=== PATIENT | female | born 1960 | race Caucasian/White ===

== ENCOUNTER 2016-10-31 05:15 | Day surgery (SDC) | payer OTHER ==
[2016-10-24 15:10] VITALS: BMI 26.6
[2016-10-31 07:00] VITALS: TEMP 98.4
[2016-10-31] MEDS ORDERED: LIDOCAINE HCL 1%, 10 MG/ML (20ML VIAL) ONE ×2 (07:18→07:19)
[2016-10-31] MEDS ORDERED: methylPREDNISolone ACET (DEPO) 40 MG/1 ML VIAL ONE (07:18)
[2016-10-31] MEDS ORDERED: BUPIVACAINE HCL/PF 0.25% (2.5MG/ML) 10 ML VIAL ONE (07:19)
[2016-10-31] MEDS ORDERED: MIDAZOLAM HCL 2 MG/2 ML SINGLE DOSE VIAL ONE (07:45)
[2016-10-31] MEDS ORDERED: PROPOFOL 20 ML ONE ×2 (07:55)
[2016-10-31] MEDS ORDERED: methylPREDNISolone ACET (DEPO) 80 MG/1 ML VIAL IJ ONE (08:32)
[2016-10-31] MEDS ORDERED: BUPIVACAINE HCL/PF 0.25% (2.5MG/ML) 10 ML VIAL IJ ONE (08:32)
[2016-10-31] MEDS ORDERED: LIDOCAINE HCL 1% PRESERVATIVE FREE - 30ML VIAL IJ ONE (08:32)
--- NOTE | 2016-10-31 09:12 | OP ---
DATE OF OPERATION: 10/31/2016 PREOPERATIVE DIAGNOSIS: Lumbar spinal stenosis with disk disease and lumbar radiculopathy. POSTOPERATIVE DIAGNOSIS: Lumbar spinal stenosis with disk disease and lumbar radiculopathy. PROCEDURE: 1. Left L3-4 epidural steroid injection. 2. Intraoperative fluoroscopy. ANESTHESIA: Local with IV sedation. ANESTHESIOLOGIST: Lulu Pace MD INDICATION: The patient is a 56-year-old female with back pain and lumbar radiculopathy. Because of her intractable symptoms and failure of conservative treatment, she is consented for her first epidural steroid injection. She has responded to 1 epidural steroid injection which was about 10 years ago with excellent result. Risks of procedure include, but are not limited to, bleeding, infection, spinal headache, and neurological injury. The patient understands the indications for the procedure, procedure in detail, risks and benefits and alternatives for treatment of her lumbar condition and wishes to proceed. No guarantees were given for a favorable outcome. PROCEDURE IN DETAIL: After the patient was taken to the operating room, she was placed in prone position with a pillow under her hips. Lumbar region was cleaned with alcohol and prepped with Betadine. A skin wheal was raised with 5 mL of 1% Xylocaine. A 22-gauge spinal needle was inserted under AP and lateral fluoroscopic guidance. From a left-sided approach to L3-4, [id number] technique was utilized, and there was no CSF or blood backflow. Depo-Medrol 80 mg and 1 mL of 0.25% Marcaine were injected. The needle was withdrawn. Sterile bandage was applied. The patient tolerated the procedure well and was returned back to supine position, moving bilateral extremities well. She did not complain of headache. Oniel [id number]
[2016-10-31 11:23] VITALS: BP 123/70; PULSE 61
== END 2016-10-31 09:50 | disposition home or self-care (01) ==
LOC: JASU-SURG 05:15
PROVIDERS: ATTEND Neurological Surgery
PROC: 3E0S33Z Introduction of Anti-inflammatory into Epidural Space, Percutaneous Approach (ICD-10-PCS; 2016-10-31)
PROC: B01BYZZ Fluoroscopy of Spinal Cord using Other Contrast (ICD-10-PCS; 2016-10-31)
PROC: 3E0S3BZ Introduction of Anesthetic Agent into Epidural Space, Percutaneous Approach (ICD-10-PCS; principal; 2016-10-31 08:00)
DX: M48.06 Spinal stenosis, lumbar region (principal); M54.16 Radiculopathy, lumbar region
CPT/HCPCS: 76000-TC

== ENCOUNTER 2017-03-29 08:05 | Day surgery (SDC) | payer BC, OTHER ==
[2017-03-28 12:50] VITALS: BMI 28.3
[2017-03-29] MEDS ORDERED: PROPOFOL 20 ML ONE ×2 (08:40)
[2017-03-29 12:22] VITALS: BP 116/75; PULSE 55; TEMP 97.8
--- NOTE | 2017-04-01 13:42 | PATH ---
Surgical Pathology Report Patient Name: CANDACE MOTA [facility]. Rec. #: [id number] /Age/Gender: 1960 (Age: 57) / F Account: [id number] Location: [facility]-ENDOSCOPY Taken: 03/29/2017 Received: 03/29/2017 Reported: 04/01/2017 Physicians: Ezequiel Pennington M.D. Specimen(s) Received A: BX 2ND PORTION DUODENUM AND BULB B: BX ANTRUM C: BX DISTAL ESOPHAGUS D: BX MID ESOPHAGUS Clinical History Preoperative diagnosis: Dysphagia, acid reflux Postoperative diagnosis: Hiatal hernia, GERD, atrophic gastritis Final Diagnosis A. DUODENUM, SECOND PORTION AND BULB, BIOPSY: DUODENAL MUCOSA WITH NO PATHOLOGIC CHANGES. NO HISTOLOGIC EVIDENCE OF GLUTEN SENSITIVE ENTEROPATHY (CELIAC SPRUE) IDENTIFIED. B. STOMACH, ANTRUM, BIOPSY: GASTRIC MUCOSA WITH NO PATHOLOGIC CHANGES. IMMUNOSTAIN FOR H. PYLORI IS NEGATIVE. C. DISTAL ESOPHAGUS, BIOPSY: SQUAMOUS AND GASTRIC MUCOSA WITH CHRONIC INFLAMMATION AND PAPILLOMATOSIS SUGGESTIVE OF REFLUX ESOPHAGITIS. NO INTESTINAL METAPLASIA IDENTIFIED (NO JAIN'S IDENTIFIED). D. MID ESOPHAGUS, BIOPSY: SQUAMOUS EPITHELIUM WITH PAPILLOMATOSIS SUGGESTIVE OF REFLUX ESOPHAGITIS. NO EOSINOPHILIC ESOPHAGITIS IDENTIFIED. Electronically Signed Rory Thacker M.D. Gross Description A. Received in formalin, labeled "biopsy second portion of duodenum and bulb" are 3 gutiérrez, irregular portions of soft tissue ranging from 0.2-0.3 cm. in greatest dimension. The specimens are submitted in toto in one cassette. B. Received in formalin, labeled "biopsy antrum" are 3 gutiérrez, irregular portions of soft tissue ranging from 0.4-0.8 cm. in greatest dimension. The specimens are submitted in toto in one cassette. C. Received in formalin, labeled "biopsy distal esophagus" are 6 gutéirrez, irregular portions of soft tissue ranging from 0.2-0.4 cm. in greatest dimension. The specimens are submitted in toto in one cassette. D. Received in formalin, labeled "biopsy midesophagus" are 3 gutiérrez, irregular portions of soft tissue ranging from 0.1-0.4 cm. in greatest dimension. The specimens are submitted in toto in one cassette. DL/03/29/2017 saudi03/29/2017
== END 2017-03-29 10:05 | disposition home or self-care (01) ==
LOC: JASU-ENDO 08:05
PROVIDERS: ATTEND Internal Medicine Gastroenterology
PROC: 0DB68ZX Excision of Stomach, Via Natural or Artificial Opening Endoscopic, Diagnostic (ICD-10-PCS; 2017-03-29)
PROC: 0DB38ZX Excision of Lower Esophagus, Via Natural or Artificial Opening Endoscopic, Diagnostic (ICD-10-PCS; 2017-03-29)
PROC: 0DB98ZX Excision of Duodenum, Via Natural or Artificial Opening Endoscopic, Diagnostic (ICD-10-PCS; principal; 2017-03-29 08:45)
DX: K21.0 Gastro-esophageal reflux disease with esophagitis (principal); K44.9 Diaphragmatic hernia without obstruction or gangrene

== ENCOUNTER 2019-04-29 04:45 | Day surgery (SDC) | payer OTHER ==
[2019-04-28 13:46] VITALS: BMI 27.3
[2019-04-29] MEDS ORDERED: methylPREDNISolone ACET (DEPO) 80 MG/1 ML VIAL ONE (07:06)
[2019-04-29] MEDS ORDERED: LIDOCAINE HCL 1%, 10 MG/ML (20ML VIAL) ONE (07:06)
[2019-04-29] MEDS ORDERED: BUPIVACAINE HCL/PF 0.25% (2.5MG/ML) 10 ML VIAL ONE (07:07)
[2019-04-29] MEDS ORDERED: PROPOFOL 20 ML ONE (07:25)
[2019-04-29] MEDS ORDERED: LIDOCAINE HCL/PF 2% SDV 5ML VIAL ONE (07:25)
[2019-04-29] MEDS ORDERED: BUPIVACAINE HCL/PF 0.25% (2.5MG/ML) 10 ML VIAL IJ ONE (07:56)
[2019-04-29] MEDS ORDERED: methylPREDNISolone ACET (DEPO) 80 MG/1 ML VIAL IM ONE (07:56)
[2019-04-29 09:18] VITALS: BP 121/83; PULSE 78; TEMP 98.4
--- NOTE | 2019-04-29 14:53 | OP ---
DATE OF OPERATION: 04/29/2019 PREOPERATIVE DIAGNOSIS: Right L5-S1 herniated disk with right L5-S1 radiculopathy. POSTOPERATIVE DIAGNOSIS: Right L5-S1 herniated disk with right L5-S1 radiculopathy. ATTENDING SURGEON: Adryan Jackson MD PROCEDURE: 1. Right L5-S1 epidural steroid injection. 2. Intraoperative fluoroscopy. ANESTHESIOLOGIST: Bonifacio Lozano MD ANESTHESIA: Local with IV sedation. INDICATION: The patient is a 59-year-old female with history of lumbar lower back injury and lumbar radiculopathy. MRI demonstrated an increasing right L5-S1 herniated disk. Because of intractable symptoms and failure of conservative treatment, she has consented for right L5-S1 epidural steroid injection. The patient was offered microdiskectomy for her extruded disk herniation with the associated neurological deficit but she declined. She would like to try epidural steroid injection despite neurological deficit. She understand that she could worsen. The risks of procedure include but are not limited to bleeding, infection, spinal headache, and neurological injury. The patient understands the indication for the procedure, procedure in detail, risks and benefits, and alternatives for treatment of her lumbar condition and wished to proceed. No guarantee is given for a favorable outcome. PROCEDURE IN DETAIL: After the patient was taken to the operating room, she was placed in a prone position with a pillow under her hips. Lumbar region was cleaned with alcohol and prepped with Betadine. A skin wheal was raised with 5 mL of 1% Xylocaine. A 20-gauge spinal needle was inserted under AP and lateral fluoroscopic guidance towards the epidural space on the right side with [id number] technique. There was no CSF or blood backflow. Depo-Medrol 80 mg and 1 mL of 0.25% Marcaine was injected. The needle was withdrawn, sterile bandage was applied. The skin was cleaned once again with alcohol and then sterile bandage was applied. The patient tolerated the procedure well and was turned back to supine position, moving bilateral lower extremities well. She did not complain of headache. ADRYAN JACKSON M.D. ELIAZAR/[id number]
== END 2019-04-29 09:10 | disposition home or self-care (01) ==
LOC: JASU-SURG 04:45
PROVIDERS: ATTEND Neurological Surgery
PROC: 3E0R33Z Introduction of Anti-inflammatory into Spinal Canal, Percutaneous Approach (ICD-10-PCS; 2019-04-29)
PROC: B01BYZZ Fluoroscopy of Spinal Cord using Other Contrast (ICD-10-PCS; 2019-04-29)
PROC: 3E0R3BZ Introduction of Anesthetic Agent into Spinal Canal, Percutaneous Approach (ICD-10-PCS; principal; 2019-04-29 07:30)
DX: M51.17 Intervertebral disc disorders with radiculopathy, lumbosacral region (principal)
CPT/HCPCS: 76000-TC-FY